=== PATIENT | female | born 1970 | race Caucasian/White ===

== ENCOUNTER → 2017-11-07 | Outpatient (CLI) | payer BC ==
[2017-11-07 11:11] LABS: Basophils % (A) 1 %; Eosinophils # (A) 0.1 k/uL (0-0.7); Eosinophils % (A) 2 %; HCT 41.6 % (34.0-46.0); HGB 14.2 gm/dL (11.4-16.0); Lymphocytes # (A) 1.6 k/uL (1.0-4.8); Lymphocytes % (A) 29 %; MCH 29.7 pg (25.0-35.0); MCHC 34.2 g/dL (31.0-37.0); MCV 86.7 fL (80.0-100.0); Mean Platelet Volume 6.8; Monocytes # (A) 0.3 k/uL (0-1.0); Monocytes % (A) 6 %; Neutrophils # (A) 3.4 k/uL (1.3-7.7); Neutrophils % (A) 62 %; Platelet Count 278 k/uL (150-450); RBC 4.79 m/uL (3.80-5.40); RDW 13.6 % (11.5-15.5); WBC 5.6 k/uL (3.8-10.6)
[2017-11-07 11:13] LABS: ALT 45 U/L (9-52); AST 16 U/L (14-36); Albumin 3.8 g/dL (3.5-5.0); Alkaline Phosphatase 65 U/L (38-126); Anion Gap 10 mmol/L; Blood Urea Nitrogen 12 mg/dL (7-17); Calcium 9.3 mg/dL (8.4-10.2); Carbon Dioxide 26 mmol/L (22-30); Chloride 106 mmol/L (98-107); Cholesterol 207 mg/dL (<200); Glucose 92 mg/dL (74-99); HDL Cholesterol 59 mg/dL (40-60); LDL Cholesterol,Calculated 115 mg/dL (0-99); Potassium 4.7 mmol/L (3.5-5.1); Sodium 142 mmol/L (137-145); Total Bilirubin 0.5 mg/dL (0.2-1.3); Total Protein 6.8 g/dL (6.3-8.2); Triglycerides 167 mg/dL (<150)
== END | disposition home or self-care (01) ==
LOC: LABMAIN 10:09
PROVIDERS: ATTEND Nurse Practitioner Primary Care
DX: Z00.00 Encounter for general adult medical examination without abnormal findings (principal)
CPT/HCPCS: 36415; 80053; 80061; 82306; 84443; 85025

== ENCOUNTER 2019-01-18 09:02 | Day surgery (SDC) | payer BC ==
[2019-01-13 16:06] VITALS: BMI 33.3
[~2019-01-18 09:02] MED LIST: LACTATED RINGERS 1,000 ML IV SCH; LIDOCAINE 1% 20 ML VIAL (10MG/ML) FOR IV START INTRADERMA PRN
[2019-01-18 09:32] VITALS: RESP 16; TEMP 97.4
[2019-01-18] MEDS ORDERED: LIDOCAINE 1% INJ 10MG/ML (20 ML MDV) ONE (10:04)
[2019-01-18] MEDS ORDERED: PROPOFOL 10 MG/ML 20 ML VIAL IV ONE (10:04)
--- NOTE | 2019-01-18 10:30 | P.PCN ---
Date of Procedure: 01/18/19 Procedure(s) Performed: BRIEF HISTORY: Patient is a 48-year-old pleasant female, scheduled for an elective colonoscopy as a part of screening for colorectal neoplasia and family history of colon cancer diagnosed in her dad at age 73. PROCEDURE PERFORMED: Colonoscopy with biopsy and snare polypectomy and tattooing with Radha ink. PREOPERATIVE DIAGNOSIS: Screening for colon cancer/family history of colon cancer. IV sedation per Anesthesia. PROCEDURE: After informed consent was obtained, the patient, was brought into the endoscopy unit. IV sedation was administered by Anesthesia under continuous monitoring. Digital rectal examination was normal. Initially the Olympus CF-160 flexible video colonoscope was then inserted in the rectum, gradually advanced into the cecum without any difficulty. Careful examination was performed as the scope was gradually being withdrawn. Ileocecal valve and the appendiceal orifice were visualized and appeared normal. Prep was excellent. Mucosa of the cecum, ascending colon, transverse colon, descending colon appeared normal. In the sigmoid colon there was a 5 mm sessile polyp that was removed by snare polypectomy. In the rectosigmoid colon extending from 18-22 cm from anal verge there was a semicircumferential flat polyp with some raised areas noted and multiple biopsies were done from this lesion. Tattooing was performed at the distal end of the polyp which again was located at the mid centimeters from the anal verge. Rectum appeared normal and retroflexion was performed in the rectum and no lesions were seen. The patient tolerated the procedure well. IMPRESSION: 3-4 centimeter flat semicircumferential rectosigmoid polyp status post multiple biopsies and tattooing with Radha ink 5 mm sessile; polyp status post polypectomy RECOMMENDATIONS: Findings of this examination were discussed with the patient as well as her family. She was advised to follow with the biopsy results and she'll be seen in office early next week.
[2019-01-18 10:58] VITALS: BP 145/58; PULSE 62
== END 2019-01-18 11:25 | disposition home or self-care (01) ==
LOC: ORWHC2ENDO 09:02
PROVIDERS: ATTEND Internal Medicine Gastroenterology
DX: Z12.11 Encounter for screening for malignant neoplasm of colon (principal); D12.5 Benign neoplasm of sigmoid colon; K63.5 Polyp of colon; Z80.0 Family history of malignant neoplasm of digestive organs; Z91.041 Radiographic dye allergy status
CPT/HCPCS: 88305; 45380; 45385; 45381; J2001; J2704

== ENCOUNTER → 2020-02-11 | Outpatient (CLI) | payer BC ==
[2020-02-11 09:13] LABS: Appearance,Urine Clear (Clear); Bilirubin,Urine Negative (Negative); Blood,Urine Small (Negative); Color,Urine Yellow; Glucose,Urine (UA) Negative (Negative); Ketones,Urine Negative (Negative); Leukocyte Esterase,Urine Negative (Negative); Mucus,Urine Rare /hpf; Nitrite,Urine Negative (Negative); PH, Urine 5.5 (5.0-8.0); Protein,Urine Negative (Negative); RBC,Urine 1 /hpf (0-5); Specific Gravity,Urine 1.015 (1.001-1.035); Urobilinogen,Urine <2.0 mg/dL (<2.0)
== END | disposition home or self-care (01) ==
LOC: LABMAIN 08:47
PROVIDERS: ATTEND Surgery Surgical Critical Care
DX: K62.89 Other specified diseases of anus and rectum (principal)
CPT/HCPCS: 81001

== ENCOUNTER 2020-03-25 13:05 | Observation (INO) | payer BC ==
[2020-03-25] MEDS ORDERED: NITROGLYCERIN OINT 1 INCH/GM PACKET TOPICAL STA (13:28)
[2020-03-25] MEDS ORDERED: SODIUM CHLORIDE 0.9% 500 ML 500 ML IV STA (13:28)
[2020-03-25] MEDS ORDERED: ASPIRIN 81 MG PO STA (13:28)
[2020-03-25] MEDS ORDERED: LORazepam 2 MG/ML INJ IV STA (13:29)
--- NOTE | 2020-03-25 13:34 | ED ---
General Adult HPI - General Chief complaint: Chest Pain Stated complaint: Chest Pain, +COVID test Time Seen by Provider: 03/25/20 13:10 Source: patient, RN notes reviewed, old records reviewed Mode of arrival: ambulatory Limitations: no limitations - History of Present Illness Initial comments: This is a 50-year-old female who presents emergency department stating that 7 weeks ago she had a sigmoidectomy. Patient states since then she's been having a little lower abdominal discomfort. Patient states the reason she came in today was because she was having some chest pain and she was at the ER twice over at [facility] and they told her she was having a panic attack but she stated that she still doesn't feel right and continues to have chest pressure. Patient states he never did any lab work and never Returned the hospital as well. Patient states she also was diagnosed with COVID on March 17 and she wonders if that has anything to do with that. Patient denies any recent fever or chills patient denies any cough. Patient states she is mildly short of breath. Patient denies any vomiting or diarrhea. - Related Data Home Medications Medication Instructions Recorded Confirmed No Known Home Medications 01/13/19 01/18/19 Allergies Allergy/AdvReac Type Severity Reaction Status Date / Time Iodinated Contrast Media Allergy Rash/Hives Verified 01/18/19 09:27 [Iodinated Contrast- Oral and IV Dye] iodine Allergy Rash/Hives Verified 01/18/19 09:27 Review of Systems ROS Statement: Those systems with pertinent positive or pertinent negative responses have been documented in the HPI. ROS Other: All systems not noted in ROS Statement are negative. Past Medical History Past Medical History: No Reported History Additional Past Medical History / Comment(s): tension headaches, History of Any Multi-Drug Resistant Organisms: None Reported Past Surgical History: Cholecystectomy Additional Past Surgical History / Comment(s): D&C, oral surgery Past Anesthesia/Blood Transfusion Reactions: Motion Sickness, Postoperative Na usea & Vomiting (PONV) Past Psychological History: Anxiety, Depression Smoking Status: Never smoker Past Alcohol Use History: Occasional Past Drug Use History: None Reported - Past Family History Father Family Medical History: Cancer Additional Family Medical History / Comment(s): colon Mother Family Medical History: Cancer General Exam - General Exam Comments Initial Comments: GENERAL: Patient is well-developed and well-nourished. Patient is nontoxic and well- hydrated and is in mild distress. ENT: Neck is soft and supple. No significant lymphadenopathy is noted. Oropharynx is clear. Moist mucous membranes. Neck has full range of motion without eliciting any pain. EYES: The sclera were anicteric and conjunctiva were pink and moist. Extraocular movements were intact and pupils were equal round and reactive to light. Eyelids were unremarkable. PULMONARY: Unlabored respirations. Good breath sounds bilaterally. No audible rales rhonchi or wheezing was noted. CARDIOVASCULAR: There is a regular rate and rhythm without any murmurs gallops or rubs. ABDOMEN: Soft and nontender with normal bowel sounds. SKIN: Skin is clear with no lesions or rashes and otherwise unremarkable. NEUROLOGIC: Patient is alert and oriented x3. Cranial nerves II through XII are grossly intact. Motor and sensory are also intact. Normal speech, volume and content. Symmetrical smile. MUSCULOSKELETAL: Normal extremities with adequate strength and full range of motion. LYMPHATICS: No significant lymphadenopathy is noted PSYCHIATRIC: Patient appears very anxious Limitations: no limitations Course Vital Signs 03/25/20 03/25/20 03/25/20 13:08 14:29 15:15 Temperature 98.2 F Pulse Rate 85 74 85 Respiratory 18 18 18 Rate Blood Pressure 158/97 128/90 127/70 O2 Sat by Pulse 98 98 99 Oximetry Medical Decision Making - Medical Decision Making EKG shows normal sinus rhythm at 75 bpm SD interval 120 QRS is 72 QT interval 376 QTC is 419. Patient's EKG shows no ST segment elevation or depression. Chest x-ray shows no acute abnormality. Patient received nitro glycerin paced and stated that seemed to help with her pain. - Lab Data Result diagrams: 03/25/20 14:17 03/25/20 14:17 Lab Results 03/25/20 03/25/20 03/25/20 Range/Units 14:17 14:17 14:17 WBC 7.5 (3.8-10.6) k/uL RBC 4.63 (3.80-5.40) m/uL Hgb 12.1 (11.4-16.0) gm/dL Hct 37.9 (34.0-46.0) % MCV 81.8 (80.0-100.0) fL MCH 26.1 (25.0-35.0) pg MCHC 32.0 (31.0-37.0) g/dL RDW 13.8 (11.5-15.5) % Plt Count 348 (150-450) k/uL Neutrophils % 69 % Lymphocytes % 22 % Monocytes % 6 % Eosinophils % 1 % Basophils % 0 % Neutrophils # 5.2 (1.3-7.7) k/uL Lymphocytes # 1.7 (1.0-4.8) k/uL Monocytes # 0.5 (0-1.0) k/uL Eosinophils # 0.1 (0-0.7) k/uL Basophils # 0.0 (0-0.2) k/uL Hypochromasia Slight Poikilocytosis Slight PT 10.1 (9.0-12.0) sec INR 1.0 (<1.2) APTT 21.7 L (22.0-30.0) sec D-Dimer 0.28 (<0.60) mg/L FEU Sodium 138 (137-145) mmol/L Potassium 4.3 (3.5-5.1) mmol/L Chloride 110 H (98-107) mmol/L Carbon Dioxide 21 L (22-30) mmol/L Anion Gap 7 mmol/L BUN 7 (7-17) mg/dL Creatinine 0.62 (0.52-1.04) mg/dL Est GFR (CKD-EPI)AfAm >90 (>60 ml/min/1.73 sqM) Est GFR (CKD-EPI)NonAf >90 (>60 ml/min/1.73 sqM) Glucose 97 (74-99) mg/dL Calcium 9.4 (8.4-10.2) mg/dL Magnesium 2.0 (1.6-2.3) mg/dL Total Bilirubin 0.4 (0.2-1.3) mg/dL AST 18 (14-36) U/L ALT 37 H (4-34) U/L Alkaline Phosphatase 57 (38-126) U/L Troponin I (0.000-0.034) ng/mL Total Protein 6.7 (6.3-8.2) g/dL Albumin 4.0 (3.5-5.0) g/dL Urine Color Urine Appearance (Clear) Urine pH (5.0-8.0) Ur Specific [place] (1.001-1.035) Urine Protein (Negative) Urine Glucose (UA) (Negative) Urine Ketones (Negative) Urine Blood (Negative) Urine Nitrite (Negative) Urine Bilirubin (Negative) Urine Urobilinogen (<2.0) mg/dL Ur Leukocyte Esterase (Negative) 03/25/20 03/25/20 Range/Units 14:17 14:40 WBC (3.8-10.6) k/uL RBC (3.80-5.40) m/uL Hgb (11.4-16.0) gm/dL Hct (34.0-46.0) % MCV (80.0-100.0) fL MCH (25.0-35.0) pg MCHC (31.0-37.0) g/dL RDW (11.5-15.5) % Plt Count (150-450) k/uL Neutrophils % % Lymphocytes % % Monocytes % % Eosinophils % % Basophils % % Neutrophils # (1.3-7.7) k/uL Lymphocytes # (1.0-4.8) k/uL Monocytes # (0-1.0) k/uL Eosinophils # (0-0.7) k/uL Basophils # (0-0.2) k/uL Hypochromasia Poikilocytosis PT (9.0-12.0) sec INR (<1.2) APTT (22.0-30.0) sec D-Dimer (<0.60) mg/L FEU Sodium (137-145) mmol/L Potassium (3.5-5.1) mmol/L Chloride (98-107) mmol/L Carbon Dioxide (22-30) mmol/L Anion Gap mmol/L BUN (7-17) mg/dL Creatinine (0.52-1.04) mg/dL Est GFR (CKD-EPI)AfAm (>60 ml/min/1.73 sqM) Est GFR (CKD-EPI)NonAf (>60 ml/min/1.73 sqM) Glucose (74-99) mg/dL Calcium (8.4-10.2) mg/dL Magnesium (1.6-2.3) mg/dL Total Bilirubin (0.2-1.3) mg/dL AST (14-36) U/L ALT (4-34) U/L Alkaline Phosphatase (38-126) U/L Troponin I <0.012 (0.000-0.034) ng/mL Total Protein (6.3-8.2) g/dL Albumin (3.5-5.0) g/dL Urine Color Light Yellow Urine Appearance Clear (Clear) Urine pH 7.0 (5.0-8.0) Ur Specific [place] 1.006 (1.001-1.035) Urine Protein Negative (Negative) Urine Glucose (UA) Negative (Negative) Urine Ketones Negative (Negative) Urine Blood Negative (Negative) Urine Nitrite Negative (Negative) Urine Bilirubin Negative (Negative) Urine Urobilinogen <2.0 (<2.0) mg/dL Ur Leukocyte Esterase Negative (Negative) Disposition Clinical Impression: Chest pain, Anxiety Disposition: ADMITTED IP TO THIS [facility] Referrals: Merly Infante MD [Primary Care Provider] - 1-2 days Time of Disposition: 15:48
--- NOTE | 2020-03-25 14:30 | XR ---
EXAMINATION TYPE: XR chest 2V DATE OF EXAM: 03/25/2020 COMPARISON: 08/09/2011 HISTORY: 50-year-old female with chest pain TECHNIQUE: PA and lateral views FINDINGS: The cardiomediastinal silhouette, aorta, and pulmonary vasculature are within normal limits. Lungs an d pleural spaces are clear. IMPRESSION: No acute cardiopulmonary process.
[2020-03-25 14:42] LABS: Basophils % (A) 0 %; Eosinophils # (A) 0.1 k/uL (0-0.7); Eosinophils % (A) 1 %; HCT 37.9 % (34.0-46.0); HGB 12.1 gm/dL (11.4-16.0); Hypochromasia Slight; Lymphocytes # (A) 1.7 k/uL (1.0-4.8); Lymphocytes % (A) 22 %; MCH 26.1 pg (25.0-35.0); MCV 81.8 fL (80.0-100.0); Mean Platelet Volume 7.7; Monocytes # (A) 0.5 k/uL (0-1.0); Monocytes % (A) 6 %; Neutrophils # (A) 5.2 k/uL (1.3-7.7); Neutrophils % (A) 69 %; Platelet Count 348 k/uL (150-450); Poikilocytosis Slight; RBC 4.63 m/uL (3.80-5.40); RDW 13.8 % (11.5-15.5); WBC 7.5 k/uL (3.8-10.6)
[2020-03-25 14:50] LABS: ALT 37 U/L (4-34); AST 18 U/L (14-36); African American GFR (CKD) >90 (>60 ml/min/1.73 sqM); Alkaline Phosphatase 57 U/L (38-126); Anion Gap 7 mmol/L; Blood Urea Nitrogen 7 mg/dL (7-17); Calcium 9.4 mg/dL (8.4-10.2); Carbon Dioxide 21 mmol/L (22-30); Chloride 110 mmol/L (98-107); Glucose 97 mg/dL (74-99); Non-African American GFR(CKD) >90 (>60 ml/min/1.73 sqM); Potassium 4.3 mmol/L (3.5-5.1); Sodium 138 mmol/L (137-145); Total Bilirubin 0.4 mg/dL (0.2-1.3); Total Protein 6.7 g/dL (6.3-8.2)
[2020-03-25 15:06] LABS: D-Dimer 0.28 mg/L FEU (<0.60); Prothrombin Time 10.1 sec (9.0-12.0)
[2020-03-25 15:20] LABS: Partial Thromboplastin Time 21.7 sec (22.0-30.0)
[2020-03-25 15:28] LABS: Appearance,Urine Clear (Clear); Bilirubin,Urine Negative (Negative); Blood,Urine Negative (Negative); Color,Urine Light Yellow; Glucose,Urine (UA) Negative (Negative); Ketones,Urine Negative (Negative); Leukocyte Esterase,Urine Negative (Negative); Nitrite,Urine Negative (Negative); Protein,Urine Negative (Negative); Specific Gravity,Urine 1.006 (1.001-1.035); Urobilinogen,Urine <2.0 mg/dL (<2.0)
[2020-03-25] MEDS ORDERED: NITROGLYCERIN SL TABS 0.4 MG TAB SUBLINGUAL PRN (15:48)
[2020-03-25] MEDS ORDERED: diazePAM 5 MG TAB PO PRN (16:21)
[2020-03-25] MEDS ORDERED: ONDANSETRON 4 MG/2 ML VIAL IVP PRN (16:28)
[2020-03-25] MEDS ORDERED: NALOXONE 0.4 MG/ML 1 ML VIAL IV PRN (16:28)
[2020-03-25] MEDS ORDERED: ACETAMINOPHEN TAB 325 MG TAB PO PRN (16:28)
--- NOTE | 2020-03-25 16:30 | P.HPIM ---
History of Present Illness H&P Date: 03/25/20 50-year-old female with PMH of anxiety presents the ED for chest pain. Patient reports being diagnosed with COVID on March 17. She reports a cough productive of yellow sputum. She reports nasal congestion, sore throat, generalized fatigue, decrease smell and taste. She reports chest pain over the last few days it has been progressively getting worse. Chest pain is described as burning in nature. Pain was initially 10 out of 10 in severity which prompted the patient to come to the ED. Pain severity decreased to 2 out of 10 after receiving nitroglycerin. Chest pain is midsternal and nonradiating. Chest pain is aggravated with deep inspiration. She denies any headache, lower extremity edema, nausea or vomiting, fever or chills, palpitations, changes in urination or bowel habits. She denies any dizziness, numbness/weakness/tingling of the extremities. She does report a history of anxiety for which she was recently started on Zoloft. She denies any smoking cigarettes. In the ED, her vital signs are stable. CBC was unremarkable. D-dimer was negative. Chest x- ray was unremarkable. CMP showed chloride of 110, bicarb of 21, ALT of 37. BNP was 79. Troponin was less than 0.012 with EKG showing normal sinus rhythm. Urinalysis is negative. Patient is a negative for chest pain, rule out acute coronary syndrome with cardiology on consult. Review of Systems Pertinent positives and negatives as discussed in HPI, a complete review of systems was performed and all other systems are negative. Past Medical History Past Medical History: No Reported History Additional Past Medical History / Comment(s): tension headaches, History of Any Multi-Drug Resistant Organisms: None Reported Past Surgical History: Cholecystectomy Additional Past Surgical History / Comment(s): D&C, oral surgery Past Anesthesia/Blood Transfusion Reactions: Motion Sickness, Postoperative Nausea & Vomiting (PONV) Past Psychological History: Anxiety, Depression Smoking Status: Never smoker Past Alcohol Use History: Occasional Past Drug Use History: None Reported - Past Family History Father Family Medical History: Cancer Additional Family Medical History / Comment(s): colon Mother Family Medical History: Cancer Medications and Allergies Home Medications Medication Instructions Recorded Confirmed Type ALPRAZolam [Xanax] 0.5 mg PO HS PRN 03/25/20 03/25/20 History Diazepam [Valium] 5 mg PO Q6H PRN 03/25/20 03/25/20 History Sertraline HCl [Zoloft] 100 mg PO AC-SUPPER 03/25/20 03/25/20 History Allergies Allergy/AdvReac Type Severity Reaction Status Date / Time Iodinated Contrast Media Allergy Rash/Hives Verified 03/25/20 16:19 [Iodinated Contrast- Oral and IV Dye] iodine Allergy Rash/Hives Verified 03/25/20 16:19 Physical Exam Vitals: Vital Signs Temp Pulse Resp BP Pulse Ox 03/25/20 15:15 85 18 127/70 99 03/25/20 14:29 74 18 128/90 98 03/25/20 13:08 98.2 F 85 18 158/97 98 Intake and Output 03/25/20 03/25/20 03/25/20 06:59 14:59 22:59 Other: Weight 92.986 kg General: [non toxic], [no distress], [appears at stated age] Derm: [warm], [dry] Head: [atraumatic], [normocephalic], [symmetric] Eyes: [EOMI], [no lid lag], [anicteric sclera] Mouth: [no lip lesion], [mucus membranes moist] Cardiovascular: [S1S2 reg], [no murmur], [positive posterior tibial pulse bilateral], Lungs: [CTA bilateral], [no rhonchi, no rales] , [no accessory muscle use] Abdominal: [soft], [ nontender to palpation], [no guarding], [no appreciable organomegaly] Ext: [no gross muscle atrophy], [no edema], [no contractures] Neuro: [ CN II-XI grossly intact], [no focal neuro deficits] Psych: [Alert], [oriented], [appropriate affect] Results CBC & Chem 7: 03/25/20 14:17 03/25/20 14:17 Labs: Abnormal Lab Results - Last 24 Hours (Table) 03/25/20 03/25/20 Range/Units 14:17 14:17 APTT 21.7 L (22.0-30.0) sec Chloride 110 H (98-107) mmol/L Carbon Dioxide 21 L (22-30) mmol/L ALT 37 H (4-34) U/L Assessment and Plan Assessment: Chest pain rule out acute coronary syndrome History of anxiety disorder Hyperchloremic metabolic acidosis Elevated ALT Obesity Her chest pain is atypical and likely related to COVID infection. Troponins less than 0.0121 with EKG showing normal sinus rhythm. Chest x-ray is negative. BNP is within normal limits, low concerns for CHF. D-dimer negative, low concerns for PE. Plans: Trend troponin/EKG to rule out ACS. Telemetry monito ring. Follow cardiology consultation. Plans: Continue Zoloft. Valium as needed for anxiety. Likely related to unfused IVF. Plans: Continue to monitor. Unknown etiology. Plans: Follow lipid panel. BMI 34.1. Plans: Patient would benefit from structured weight loss program. DVT prophylaxis: [SCD boots] Discussed with: [Patient] Anticipated discharge: [1-2 days] Anticipated discharge place: [Home] A total of [35] minutes was spent on the care of this complex patient more than 50% of the time was spent in counseling and care coordination. Patient names her Reilly decision-maker if she can't make decisions for herself. Patient would like to be full code.
[2020-03-25] MEDS: NITROGLYCERIN OINT 1 INCH/GM PACKET TOPICAL SCH ×2 (18:16→23:26)
[2020-03-25] MEDS: SERTRALINE 100 MG TAB PO SCH (18:16)
[2020-03-25] MEDS: AZITHROMYCIN 500 MG TAB PO SCH (18:16)
[2020-03-25] MEDS: KETOROLAC 15 MG/ML 1 ML VIAL IVP SCH ×2 (18:17→23:26)
[2020-03-26] MEDS: KETOROLAC 15 MG/ML 1 ML VIAL IVP SCH ×3 (05:16→17:20)
[2020-03-26] MEDS: NITROGLYCERIN OINT 1 INCH/GM PACKET TOPICAL SCH ×2 (05:17→12:12)
[2020-03-26] MEDS: LORazepam 1 MG TAB PO PRN ×2 (05:24→14:32)
[2020-03-26 07:24] LABS: ALT 31 U/L (4-34); AST 13 U/L (14-36); African American GFR (CKD) >90 (>60 ml/min/1.73 sqM); Albumin 3.4 g/dL (3.5-5.0); Alkaline Phosphatase 50 U/L (38-126); Anion Gap 4 mmol/L; Blood Urea Nitrogen 8 mg/dL (7-17); Calcium 8.5 mg/dL (8.4-10.2); Carbon Dioxide 25 mmol/L (22-30); Chloride 111 mmol/L (98-107); Cholesterol 154 mg/dL (<200); Glucose 104 mg/dL (74-99); HDL Cholesterol 46 mg/dL (40-60); LDL Cholesterol,Calculated 91 mg/dL (0-99); Non-African American GFR(CKD) >90 (>60 ml/min/1.73 sqM); Potassium 4.6 mmol/L (3.5-5.1); Sodium 140 mmol/L (137-145); Total Bilirubin 0.3 mg/dL (0.2-1.3); Total Protein 5.9 g/dL (6.3-8.2); Triglycerides 87 mg/dL (<150)
[2020-03-26] MEDS ORDERED: ALBUTEROL HFA INHALER INHALATION PRN (08:11)
[2020-03-26] MEDS ORDERED: ASPIRIN 325 MG TAB PO SCH (09:00)
[2020-03-26] MEDS: AZITHROMYCIN 500 MG TAB PO SCH (09:15)
[2020-03-26] MEDS ORDERED: ONDANSETRON 4 MG/2 ML VIAL IVP PRN (09:25)
[2020-03-26] MEDS ORDERED: NALOXONE 0.4 MG/ML 1 ML VIAL IV PRN (09:25)
[2020-03-26 10:12] VITALS: RESP 16
--- NOTE | 2020-03-26 11:30 | P.CRDCN ---
History of Present Illness Consult date: 03/26/20 History of present illness: CHIEF COMPLAINT: chest pain HISTORY OF PRESENT ILLNESS: 50-year-old female who presented to the emergency room a chief of chest pain. Patient denies any cardiac history and has not seen a fish cutter in the past for any reason. Patient examined this morning at the bedside. She reports she was diagnosed with Covid19 on 03/17/2020. She reports since that time she has been having some shortness of breath. She also reports chest pain that started a few days after her diagnosis. She states the pain is on both sides of her chest and she describes it as a burning sensation. The pain is worse with deep inspiration. She also repeat reports her chest hurts when she is on both sides. DIAGNOSTICS: EKG reveals sinus rhythm Chest xray negative for acute process Laboratory data: WBC 7.5. Hemoglobin 12.1. Platelet count 348. Sodium 140. Potassium 4.6. BUN 8. Creatinine 0.72. troponins negative 3 Current home cardiac medications include: none REVIEW OF SYSTEMS: CONSTITUTIONAL: Denies fever or chills. reports generalized weakness and fati camelia. HEENT: Denies blurred vision, vision changes, or eye pain. Denies hemoptysis CARDIOVASCULAR: reports chest pain. Denies orthopnea, PND or palpitations RESPIRATORY: reports mild shortness of breath. GASTROINTESTINAL: Denies abdominal pain. Denies nausea or vomiting. HEMATOLOGIC: Denies bleeding disorders. GENITOURINARY: Denies any blood in urine. SKIN: Denies pruitis. Denies rash. PHYSICAL EXAM: VITAL SIGNS: Reviewed. GENERAL: Well-developed in no acute distress. HEENT: Head is normocephalic. Pupils are equal, round. Sclerae anicteric. Mucous membranes of the mouth are moist. Neck supple. No JVD or thyromegaly LUNGS: Respirations even and unlabored. Lungs essentially clear to auscultation bilaterally. HEART: Regular rate and rhythm. S1 and S2 heard. ABDOMEN: Soft. nondistended. Nontender. EXTREMITIES: Normal range of motion. No clubbing or cyanosis. Peripheral pulses intact. No lower extremity edema NEUROLOGIC: Awake and alert. Oriented x 3. ASSESSMENT: 1. Atypical chest pain 2. Covid 19 PLAN: Patient's chest pain appears to be related to Covid 19 infection, acute coronary event has been ruled out Will check 2-D echo to assess cardiac structure and function. If echocardiogram is within normal limits patient may be discharged home from a cardiac standpoint Nurse practitioner note has been reviewed by physician. Signing provider agrees with the documented findings, assessment, and plan of care. Past Medical History Past Medical History: No Reported History Additional Past Medical History / Comment(s): tension headaches, History of Any Multi-Drug Resistant Organisms: None Reported Past Surgical History: Cholecystectomy Additional Past Surgical History / Comment(s): D&C, oral surgery, sigmoidectomy, endometrioma, Past Anesthesia/Blood Transfusion Reactions: Motion Sickness, Postoperative Nausea & Vomiting (PONV) Past Psychological History: Anxiety, Depression Smoking Status: Never smoker Past Alcohol Use History: Occasional Past Drug Use History: None Reported - Past Family History Father Family Medical History: Cancer Additional Family Medical History / Comment(s): colon Mother Family Medical History: Cancer Medications and Allergies Home Medications Medication Instructions Recorded Confirmed Type ALPRAZolam [Xanax] 0.5 mg PO HS PRN 03/25/20 03/25/20 History Diazepam [Valium] 5 mg PO Q6H PRN 03/25/20 03/25/20 History Sertraline HCl [Zoloft] 100 mg PO AC-SUPPER 03/25/20 03/25/20 History Albuterol Inhaler [Ventolin Hfa 1 puff INHALATION RT-QID PRN #1 03/26/20 Rx Inhaler] inhaler Azithromycin [Zithromax] 500 mg PO DAILY #1 tab 03/26/20 Rx Allergies Allergy/AdvReac Type Severity Reaction Status Date / Time Iodinated Contrast Media Allergy Rash/Hives Verified 03/25/20 16:19 [Iodinated Contrast- Oral and IV Dye] iodine Allergy Rash/Hives Verified 03/25/20 16:19 Physical Exam Vitals: Vital Signs Temp Pulse Pulse Resp BP BP Pulse Ox 03/26/20 08:00 98.1 F 86 16 123/70 97 03/26/20 04:00 98 F 82 18 114/75 97 03/26/20 00:00 98 F 90 18 127/79 96 03/25/20 20:00 97.8 F 76 18 129/80 97 03/25/20 18:24 97.9 F 83 16 112/68 97 03/25/20 17:30 98.0 F 92 18 129/72 97 03/25/20 16:30 98.0 F 80 18 134/75 97 03/25/20 15:15 85 18 127/70 99 03/25/20 14:29 74 18 128/90 98 03/25/20 13:08 98.2 F 85 18 158/97 98 Intake and Output 03/25/20 03/26/20 03/26/20 22:59 06:59 14:59 Other: Voiding Method Toilet Toilet # Voids 1 1 # Bowel Movements 2 Weight 97 kg Results 03/25/20 14:17 03/26/20 06:43 Cardiac Enzymes 03/25/20 03/25/20 03/25/20 Range/Units 14:17 14:17 17:17 AST 18 (14-36) U/L Troponin I <0.012 <0.012 (0.000-0.034) ng/mL 03/25/20 03/26/20 Range/Units 19:54 06:43 AST 13 L (14-36) U/L Troponin I <0.012 (0.000-0.034) ng/mL Coagulation 03/25/20 Range/Units 14:17 PT 10.1 (9.0-12.0) sec APTT 21.7 L (22.0-30.0) sec Lipids 03/26/20 Range/Units 06:43 Triglycerides 87 (<150) mg/dL Cholesterol 154 (<200) mg/dL HDL Cholesterol 46 (40-60) mg/dL CBC 03/25/20 Range/Units 14:17 WBC 7.5 (3.8-10.6) k/uL RBC 4.63 (3.80-5.40) m/uL Hgb 12.1 (11.4-16.0) gm/dL Hct 37.9 (34.0-46.0) % Plt Count 348 (150-450) k/uL Comprehensive Metabolic Panel 03/25/20 03/26/20 Range/Units 14:17 06:43 Sodium 138 140 (137-145) mmol/L Potassium 4.3 4.6 (3.5-5.1) mmol/L Chloride 110 H 111 H (98-107) mmol/L Carbon Dioxide 21 L 25 (22-30) mmol/L BUN 7 8 (7-17) mg/dL Creatinine 0.62 0.72 (0.52-1.04) mg/dL Glucose 97 104 H (74-99) mg/dL Calcium 9.4 8.5 (8.4-10.2) mg/dL AST 18 13 L (14-36) U/L ALT 37 H 31 (4-34) U/L Alkaline Phosphatase 57 50 (38-126) U/L Total Protein 6.7 5.9 L (6.3-8.2) g/dL Albumin 4.0 3.4 L (3.5-5.0) g/dL Current Medications Generic Name Dose Route Start Last Admin Trade Name Freq PRN Reason Stop Dose Admin Acetaminophen 650 mg 03/25/20 16:28 Tylenol Tab PO Q6HR PRN Mild Pain or Fever > 100.5 Albuterol Sulfate 1 puff 03/26/20 08:11 Ventolin Hfa Inhaler INHALATION RT-QID PRN Shortness Of Breath Or Wheezing Aspirin 325 mg 03/26/20 09:00 03/26/20 09:15 Aspirin PO 325 mg DAILY [facility] Administration Azithromycin 500 mg 03/25/20 16:30 03/26/20 09:15 Zithromax PO 500 mg DAILY [facility] Administration Dexamethasone 1 mg 03/25/20 16:30 03/26/20 09:15 Hexadrol PO 1 mg DAILY [facility] Administration Ketorolac Tromethamine 15 mg 03/25/20 18:00 03/26/20 05:16 Toradol IVP 03/28/20 16:22 15 mg Q6HR MACKENZIE Administration Lorazepam 1 mg 03/25/20 21:59 03/26/20 05:24 Ativan PO 1 mg TID PRN Administration Anxiety Naloxone HCl 0.2 mg 03/26/20 09:25 Narcan IV Q2M PRN Opioid Reversal Nitroglycerin 0.4 mg 03/25/20 15:48 Nitrostat SUBLINGUAL Q5M PRN Chest Pain Nitroglycerin 1 inch 03/25/20 18:00 03/26/20 05:17 Nitro-Bid Oint TOPICAL Not Given Q6HR [facility] Ondansetron HCl 4 mg 03/26/20 09:25 Zofran IVP Q8HR PRN Nausea And Vomiting Sertraline HCl 100 mg 03/25/20 17:30 03/25/20 18:16 Zoloft PO 100 mg AC-SUPPER MACKENZIE Administration Intake and Output 03/25/20 03/26/20 03/26/20 22:59 06:59 14:59 Other: Voiding Method Toilet Toilet # Voids 1 1 # Bowel Movements 2 Weight 97 kg 03/25/20 14:17 03/26/20 06:43
--- NOTE | 2020-03-26 13:48 | P.DS ---
Providers Date of admission: 03/25/20 16:00 Expected date of discharge: 03/26/20 Attending physician: Nahomi Gabriel MD Consults: 03/25/20 15:49 Consult Physician Urgent Consulting Provider: [facility] Consult Reason/Comments: Chest pain Do you want consulting provider notified?: Yes Primary care physician: Merly Infante MD Hospital Course: 50-year-old female with PMH of anxiety presents the ED for chest pain. Patient reports being diagnosed with COVID on March 17. She reports a cough productive of yellow sputum. She reports nasal congestion, sore throat, generalized fatigue, decrease smell and taste. She reports chest pain over the last few days it has been progressively getting worse. Chest pain is described as burning in nature. Pain was initially 10 out of 10 in severity which prompted the patient to come to the ED. Pain severity decreased to 2 out of 10 after receiving nitroglycerin. Chest pain is midsternal and nonradiating. Maisha st pain is aggravated with deep inspiration. She denies any headache, lower extremity edema, nausea or vomiting, fever or chills, palpitations, changes in urination or bowel habits. She denies any dizziness, numbness/weakness/tingling of the extremities. She does report a history of anxiety for which she was recently started on Zoloft. She denies any smoking cigarettes. In the ED, her vital signs are stable. CBC was unremarkable. D-dimer was negative. Chest x- ray was unremarkable. CMP showed chloride of 110, bicarb of 21, ALT of 37. BNP was 79. Troponin was less than 0.012 with EKG showing normal sinus rhythm. Urinalysis is negative. Patient is a negative for chest pain, rule out acute coronary syndrome with cardiology on consult. Troponin was less than 0.0123 with EKG showing normal sinus rhythm. Acute coronary syndrome was ruled out. Cardiology was consulted and recommended echocardiogram. Echocardiogram was pending at the time of this note. Patient was seen and examined. No acute events overnight. Patient reports chest pain with deep inspiration. Also tender to palpation over her chest wall. She denies any shortness of breath or palpitations. No nausea or vomiting. No fever or chills. General: [non toxic], [no distress], [appears at stated age] Derm: [warm], [dry] Head: [atraumatic], [normocephalic], [symmetric] Eyes: [EOMI], [no lid lag], [anicteric sclera] Mouth: [no lip lesion], [mucus membranes moist] Cardiovascular: [S1S2 reg], [no murmur], [positive posterior tibial pulse bilateral], tenderness to palpation over the chest wall Lungs: [CTA bilateral], [no rhonchi, no rales] , [no accessory muscle use] Abdominal: [soft], [ nontender to palpation], [no guarding], [no appreciable organomegaly] Ext: [no gross muscle atrophy], [no edema], [no contractures] Neuro: [no focal neuro deficits] Psych: [Alert], [oriented], [appropriate affect] Chest pain rule out acute coronary syndrome History of anxiety disorder Hyperchloremic metabolic acidosis Elevated ALT Obesity Her chest pain is atypical and likely related to COVID infection. Troponins less than 0.012 3 with EKG showing normal sinus rhythm. Chest x-ray is negative. BNP is within normal limits, low concerns for CHF. D-dimer negative, low concerns for PE. Plans: ACS ruled out. Telemetry monitoring. Cardiology consultation, cleared for discharge if echocardiogram normal. Plans: Continue Zoloft. Valium as needed for anxiety. Likely related to unfused IVF. Plans: Continue to monitor. Unknown etiology. Plans: Follow lipid panel. BMI 35.6. Plans: Patient would benefit from structured weight loss program. DVT prophylaxis: [SCD boots] Discussed with: [Patient] Anticipated discharge: [1-2 days] Anticipated discharge place: [Home] A total of [35] minutes was spent on the care of this complex patient more than 50% of the time was spent in counseling and care coordination. Patient names her Reilyl decision-maker if she can't make decisions for herself. Patient would like to be full code. Anticipated DC home today if echocardiogram is normal. Pertinent Studies: Chest x-ray Patient Condition at Discharge: Stable Plan - Discharge Summary Discharge Rx Participant: Yes New Discharge Prescriptions: New Albuterol Inhaler [Ventolin Hfa Inhaler] 1 puff INHALATION RT-QID PRN #1 inhaler PRN Reason: Shortness Of Breath Or Wheezing Azithromycin [Zithromax] 500 mg PO DAILY #1 tab Continue Sertraline HCl [Zoloft] 100 mg PO AC-SUPPER Diazepam [Valium] 5 mg PO Q6H PRN PRN Reason: Anxiety ALPRAZolam [Xanax] 0.5 mg PO HS PRN PRN Reason: Insomnia Discharge Medication List ALPRAZolam [Xanax] 0.5 mg PO HS PRN 03/25/20 [History] Diazepam [Valium] 5 mg PO Q6H PRN 03/25/20 [History] Sertraline HCl [Zoloft] 100 mg PO AC-SUPPER 03/25/20 [History] Albuterol Inhaler [Ventolin Hfa Inhaler] 1 puff INHALATION RT-QID PRN #1 inhaler 03/26/20 [Rx] Azithromycin [Zithromax] 500 mg PO DAILY #1 tab 03/26/20 [Rx] Follow up Appointment(s)/Referral(s): Gaby Alvarenga MD [REFERRING] - 1 Week Edenilson Kunz MD [STAFF PHYSICIAN] - 1 Week (Office will call to make follow up appointment. ) Patient Instructions/Handouts: Chest Pain (DC), Anxiety (GEN) Activity/Diet/Wound Care/Special Instructions: Diet: Cardiac FU PCP within 3 days of DC. FU Cardiology within 1 week of DC. Take all medications as advised. Come back to ED or call 911 for worsening CP, SOB, palpitations. Follow up with your surgeon that did your surgery. Discharge Disposition: HOME SELF-CARE
[2020-03-26 16:13] VITALS: BP 127/73; PULSE 94; TEMP 98.3
[2020-03-26] MEDS: SERTRALINE 100 MG TAB PO SCH (17:20)
--- NOTE | 2020-03-27 10:02 | ECHOF ---
Referral Reason:Chest pain and cardiomyopathy MEASUREMENTS -------- HEIGHT: 165.1 cm WEIGHT: 96.6 kg BP: 114/75 RVIDd: 4.0 cm (< 3.3) IVSd: 1.1 cm (0.6 - 1.1) LVIDd: 3.8 cm (3.9 - 5.3) LVPWd: 1.3 cm (0.6 - 1.1) IVSs: 1.7 cm LVIDs: 2.1 cm LVPWs: 1.9 cm LAESV Index (A-L): 19.53 ml/m Ao Diam: 2.9 cm (2.0 - 3.7) AV Cusp: 1.8 cm (1.5 - 2.6) MV EXCURSION: 17.354 mm (> 18.000) MV EF SLOPE: 122 mm/s (70 - 150) EPSS: 0.8 cm MV E Greg: 0.89 m/s MV DecT: 193 ms MV A Greg: 0.96 m/s MV E/A Ratio: 0.93 RAP: 5.00 mmHg RVSP: 34.81 mmHg FINDINGS -------- Sinus rhythm. This was a technically adequate study. The left ventricular size is normal. There is mild concentric left ventricular hypertrophy. Overa ll left ventricular systolic function is normal with, an EF between 55 - 60 %. The diastolic fillin g pattern is normal for the age of the patient 8.46. The right ventricle is mild to moderately enlarged. Normal LA size by volume 22+/-6 ml/m2. The right atrial size is normal. Interatrial and interventricular septum intact. The aortic valve is trileaflet, and appears structurally normal. No aortic stenosis or regurgitation. The mitral valve is normal. No mitral regurgitation. Mild tricuspid regurgitation present. Right ventricular systolic pressure is normal at < 35 mmHg. The right ventricular systolic pressure, as measured by Doppler, is 34.81mmHg. There is no pulmonic regurgitation present. The aortic root size is normal. IVC Not well visulized. There is no pericardial effusion. CONCLUSIONS -------- 1. There is mild concentric left ventricular hypertrophy. 2. Overall left ventricular systolic function is normal with, an EF between 55 - 60 %. 3. The diastolic filling pattern is normal for the age of the patient 8.46 4. The right ventricle is mild to moderately enlarged. 5. Normal LA size by volume 22+/-6 ml/m2. 6. The aortic valve is trileaflet, and appears structurally normal. No aortic stenosis or regurgitati on. 7. The mitral valve is normal. 8. Mild tricuspid regurgitation present. 9. There is no pericardial effusion. REPORT DEVELOPER: Yani Kelly RDCS
== END 2020-03-26 18:08 | disposition home or self-care (01) ==
LOC: EC 13:05 → 3SCARD 16:00
PROVIDERS: ADMIT Internal Medicine; ATTEND Internal Medicine
DX: U07.1 COVID-19 (principal); E87.2 Acidosis; F41.9 Anxiety disorder, unspecified; F32.9 Major depressive disorder, single episode, unspecified; R10.30 Lower abdominal pain, unspecified; E66.9 Obesity, unspecified; Z68.35 Body mass index [BMI] 35.0-35.9, adult; Z91.041 Radiographic dye allergy status; Z91.048 Other nonmedicinal substance allergy status; Z86.69 Personal history of other diseases of the nervous system and sense organs; Z90.49 Acquired absence of other specified parts of digestive tract; Z98.890 Other specified postprocedural states; Z87.898 Personal history of other specified conditions; Z91.89 Other specified personal risk factors, not elsewhere classified; Z79.899 Other long term (current) drug therapy; Z80.0 Family history of malignant neoplasm of digestive organs; Z80.9 Family history of malignant neoplasm, unspecified
CPT/HCPCS: 96376 ×2; 96375; 93005 ×2; 96361; 96374; 99285; 36415; 93306; 85379; 83880; 80061; 80053 ×2; 83735; 84484; 85025; 85610; 85730; 81003; 71046; G0378 ×2; J8540 ×2; J2060; J2405; J1885 ×2

== ENCOUNTER → 2020-04-01 | Outpatient (CLI) | payer BC ==
[~2020-04-01] MED LIST changes: -LACTATED RINGERS 1,000 ML IV SCH; -LIDOCAINE 1% 20 ML VIAL (10MG/ML) FOR IV START INTRADERMA PRN; +REGADENOSON 0.4 MG/5 ML SYRINGE IV ONE
--- NOTE | 2020-04-01 12:12 | NM ---
EXAMINATION TYPE: NM stress lexiscan cardiolite DATE OF EXAM: 04/01/2020 COMPARISON: NONE HISTORY: Chest pain TECHNIQUE: After the intravenous administration of 9.5 mCi Tc 99m Sestamibi - Cardiolite resting SPE CT images acquired 60 minutes post injection. The patient received 0.4mg Lexiscan, 26.1 mCi Tc 99m Sestamibi - Stress images obtained [address] injection FINDINGS: Review of stress and rest SPECT images demonstrates no distinct perfusion abnormality. Gated analysi s shows normal wall motion with an estimated left ventricular ejection fraction of 80 %. TID 1.03 IMPRESSION: 1. No scintigraphic evidence for reversible ischemia. 2. Ejection fraction 80%
--- NOTE | 2020-04-03 09:01 | EST ---
Stress Test Results/Findings: Exam Performed: NM stress lexiscan cardiolite Exam Date: 04/01/20 Reason for Exam: Chest Tightness Height: 5 ft 5 in Weight: 90.265 kg Protocol: Lexiscan Stage: NA Duration of Exercise: NA Resting Heart Rate: 67 Resting Blood Pressure: 130/79 Maximum Achieved Heart Rate: 133 Maximum Achieved Blood Pressure: 141/93 85% PMHR: 145 100% PMHR: 171 METS: na Technologist Comment: Stress Test Results/Findings: At baseline patient's EKG shows sinus rhythm with a heart rate of 67 bpm, normal axis, no ST or T-wave abnormalities. Lexiscan 0.4 mg was infused. Patient did have nonspecific 0.[address] depression in V3 through V6 with inverted T waves with peak infusion. EKG findings resolved in the recovery phase. Conclusions: 1. Nondiagnostic EKG response to Lexiscan. 2. Nuclear images will be reported separately. [facility]
== END | disposition home or self-care (01) ==
LOC: RADNMMAIN 07:54
PROVIDERS: ATTEND Internal Medicine Cardiovascular Disease
DX: R07.9 Chest pain, unspecified (principal)
CPT/HCPCS: 93017; 78452; A9500; J2785

== ENCOUNTER → 2022-07-16 | Outpatient (CLI) | payer BC ==
--- NOTE | 2022-07-20 09:47 | MM ---
Reason for Exam: Screening (asymptomatic). Last screening mammogram was performed 12 month(s) ago. Patient History: Menarche at age 15. First Full-Term at age 28. Patient has history of breast feeding. Currently using Hormonal Contraceptives, beginning at age 22 for 18 years. Paternal aunt had breast cancer under age 50. Risk Values: Tammy 5 year model risk: 1.0%. NCI Lifetime model risk: 8.9%. Prior Study Comparison: 07/03/2009 Bilateral Screening Mammogram, [facility]. 06/30/2011 Bilateral Screening Mammogram, [facility]. 12/14/2012 Bilateral Screening Mammogram, [facility]. 05/23/2020 Bilateral MG 3D screening mammo w/cad, [facility]. 07/04/2021 Bilateral MG 3D screening mammo w/cad, [facility]. Tissue Density: The breast tissue is heterogeneously dense. This may lower the sensitivity of mammography. Findings: Analyzed By CAD. There is 8mm circumscribed oval mass in the right breast redemonstrated and stable. Benign-appearing right axillary lymph nodes are noted. There is no suspicious new group of microcalcifications or new suspicious mass in either breast. Overall Assessment: Benign, BI-RAD 2 Management: Screening Mammogram of both breasts in 1 year. Some advise bilateral breast ultrasound surveillance in patients with background dense tissue. A clinical breast exam by your physician is recommended on an annual basis and results should be correlated with mammographic findings. Electronically signed and approved by: Haris Ying M.D.
== END | disposition home or self-care (01) ==
LOC: RADMAMWWP 16:37
PROVIDERS: ATTEND Obstetrics & Gynecology
DX: Z12.31 Encounter for screening mammogram for malignant neoplasm of breast (principal); Z80.3 Family history of malignant neoplasm of breast
CPT/HCPCS: 77063; 77067

== ENCOUNTER → 2022-07-23 | Outpatient (CLI) | payer BC ==
--- NOTE | 2022-07-23 10:42 | CT ---
EXAMINATION TYPE: CT abdomen w con DATE OF EXAM: 07/23/2022 COMPARISON: None HISTORY: Right upper quadrant pain CT DLP: 1086 mGycm CONTRAST: CT scan of the abdomen is performed with Oral Contrast and with IV Contrast, patient injected with 70 mL of Isovue 300. FINDINGS: LUNG BASES-: No visible nodule. No infiltrate. Small sliding-type hiatal hernia noted. LIVER/GB: The gallbladder is surgically absent. No space occupying hepatic lesion. Biliary tree is of normal caliber. PANCREAS: No inflammation. No distinct mass. SPLEEN: No splenic enlargement. No lesion seen. ADRENALS: No nodule. No thickening. KIDNEYS/BLADDER: No hydronephrosis. No nephrolithiasis. No distinct renal mass. Urinary bladder g rossly unremarkable. BOWEL: Visualized portions of the bowel appear to be of normal caliber and wall thickness. Moderate f ecal stasis noted. LYMPH NODES: No greater than 1cm abdominal or pelvic lymph nodes are appreciated. AORTA: No significant abnormality. OSSEOUS STRUCTURES: No significant abnormality is seen. OTHER: No significant additional abnormality is seen. IMPRESSION: 1. Moderate fecal stasis. 2. Small sliding-type hiatal hernia.
== END | disposition home or self-care (01) ==
LOC: RADCTMAIN 09:26
PROVIDERS: ATTEND Family Medicine
DX: R19.09 Other intra-abdominal and pelvic swelling, mass and lump (principal); K44.9 Diaphragmatic hernia without obstruction or gangrene; K56.41 Fecal impaction
CPT/HCPCS: 74160; Q9967